=== PATIENT | male | born 1985 | race Caucasian/White ===

== ENCOUNTER 2018-02-22 16:02 | Emergency (ER) | payer OTHER ==
[~2018-02-22] VITALS: Ht 175.3 cm; Wt 56.2 kg
[~2018-02-22 16:02] MED LIST: PROTONIX20 MG PO
== END 2018-02-22 20:06 | disposition home or self-care (01) ==
LOC: ER 16:02
DX: B34.9 Viral infection, unspecified (principal)

== ENCOUNTER 2018-03-04 18:01 | Emergency (ER) | payer OTHER ==
[~2018-03-04] VITALS: Ht 175.3 cm; Wt 99.8 kg
== END 2018-03-04 22:31 | disposition home or self-care (01) ==
LOC: ER 18:01
DX: J09.X2 Influenza due to identified novel influenza A virus with other respiratory manifestations (principal)

== ENCOUNTER 2021-10-21 10:15 | Outpatient (CLI) | payer OTHER | END 2021-10-21 10:17 | disposition home or self-care (01) | LOC: RAD 10:15 | DX: M47.816 Spondylosis without myelopathy or radiculopathy, lumbar region (principal); S93.401A Sprain of unspecified ligament of right ankle, initial encounter ==